=== PATIENT | male | born 1935 | race Caucasian/White ===

== ENCOUNTER 2016-06-28 21:34 | Observation (INO) | payer MEDICARE, OTHER ==
[~2016-06-28] VITALS: Ht 182.9 cm; Wt 83.5 kg
== END 2016-06-30 16:05 | disposition home or self-care (01) ==
LOC: ER 21:34 → MED 06-29 03:17
PROVIDERS: ADMIT Internal Medicine
DX: B34.9 Viral infection, unspecified (principal); R53.1 Weakness; E11.22 Type 2 diabetes mellitus with diabetic chronic kidney disease; I13.0 Hypertensive heart and chronic kidney disease with heart failure and stage 1 through stage 4 chronic kidney disease, or unspecified chronic kidney disease; N18.3 Chronic kidney disease, stage 3 (moderate); N17.9 Acute kidney failure, unspecified; I50.22 Chronic systolic (congestive) heart failure; I25.5 Ischemic cardiomyopathy; K59.00 Constipation, unspecified; D64.9 Anemia, unspecified; Z79.02 Long term (current) use of antithrombotics/antiplatelets; Z79.82 Long term (current) use of aspirin; Z79.899 Other long term (current) drug therapy; Z98.890 Other specified postprocedural states
CPT/HCPCS: 36415; 87502; 96361; 96365; 96372; 97162-GP; G0378; J0696; J1650

== ENCOUNTER 2016-06-28 21:34 | Emergency (ER) | payer MEDICARE, OTHER | END 2016-06-29 03:16 | disposition critical access hospital (66) | LOC: ER 21:34 | DX: R53.1 Weakness (principal); N28.9 Disorder of kidney and ureter, unspecified; F41.9 Anxiety disorder, unspecified; E10.9 Type 1 diabetes mellitus without complications; I10 Essential (primary) hypertension; F40.240 Claustrophobia; Z90.49 Acquired absence of other specified parts of digestive tract; Z95.5 Presence of coronary angioplasty implant and graft; Z95.1 Presence of aortocoronary bypass graft | CPT/HCPCS: 96361; 96365 ==

== ENCOUNTER 2016-06-30 19:36 | Emergency (ER) | payer MEDICARE, OTHER | END 2016-06-30 21:43 | disposition home or self-care (01) | LOC: ER 19:36 | DX: R53.1 Weakness (principal); N28.9 Disorder of kidney and ureter, unspecified; F41.9 Anxiety disorder, unspecified; I10 Essential (primary) hypertension; E10.9 Type 1 diabetes mellitus without complications; Z90.49 Acquired absence of other specified parts of digestive tract; Z95.1 Presence of aortocoronary bypass graft | CPT/HCPCS: 36415; 51701 ==

== ENCOUNTER 2016-07-13 16:08 | Observation (INO) | payer MEDICARE, OTHER ==
[~2016-07-13] VITALS: Ht 182.9 cm; Wt 82.6 kg
== END 2016-07-14 14:45 | disposition home or self-care (01) ==
LOC: ER 16:08 → MED 21:45
PROVIDERS: ADMIT Internal Medicine
DX: I16.0 Hypertensive urgency (principal); R11.2 Nausea with vomiting, unspecified; E11.22 Type 2 diabetes mellitus with diabetic chronic kidney disease; I13.0 Hypertensive heart and chronic kidney disease with heart failure and stage 1 through stage 4 chronic kidney disease, or unspecified chronic kidney disease; N18.3 Chronic kidney disease, stage 3 (moderate); I50.22 Chronic systolic (congestive) heart failure; E11.43 Type 2 diabetes mellitus with diabetic autonomic (poly)neuropathy; K31.84 Gastroparesis; Z87.448 Personal history of other diseases of urinary system; Z79.02 Long term (current) use of antithrombotics/antiplatelets; Z79.4 Long term (current) use of insulin; Z79.82 Long term (current) use of aspirin; Z79.899 Other long term (current) drug therapy
CPT/HCPCS: 36415; 96372; 96374; G0378; J1650